=== PATIENT | male | born 1985 | race Hispanic/Latino ===

== ENCOUNTER → 2018-02-11 | Day surgery (SDC) | payer OTHER ==
[2018-02-06 09:56] LABS: BASOPHILS # (AUTO) 0.1 (0.0-0.1); BASOPHILS % 0.8 % (0.0-1.0); EOSINOPHILS # (AUTO) 0.1 (0.0-0.4); EOSINOPHILS % 1.7 % (0.0-6.0); HEMATOCRIT 47.8 % (38.2-49.6); HEMOGLOBIN 16.6 g/dL (14.0-18.0); LYMPHOCYTES # (AUTO) 3.2 (1.0-3.2); LYMPHOCYTES % 48.6 % (18.0-39.1); MEAN CORPUSCULAR HEMOGLOBIN 30.8 pg (28-32); MEAN CORPUSCULAR HGB CONC 34.7 g/dL (31-35); MEAN CORPUSCULAR VOLUME 88.7 fL (81-99); MONOCYTES # (AUTO) 0.9 (0.2-0.8); MONOCYTES % 13.3 % (4.4-11.3); NEUTROPHILS # (AUTO) 2.3 (2.1-6.9); NEUTROPHILS % 35.3 % (38.7-80.0); PLATELET COUNT 234 x10e3/uL (140-360); RED BLOOD COUNT 5.39 x10e6/uL (4.3-5.7); RED CELL DISTRIBUTION WIDTH 12.6 % (11.7-14.4)
[~2018-02-11] MED LIST: BUPIVACAINE 0.25% 30ML SDV INJ ONE; BUPIVACAINE HCL 0.5% INJ 30 ML VIAL INJ ONE; CEFTRIAXONE SOD 1 GM VIAL ONE; DEXAMETHASONE SOD PHOS INJ 4 MG/ML VIAL ONE; FENTANYL CITRATE/PF 100MCG/2 ML INJ ONE; KETOROLAC TROMETHAMINE 30 MG/ML VIAL ONE; LIDOCAINE HCL 2% LOCAL INJ 5 ML SDV VIAL INJ ONE; MIDAZOLAM HCL 2 MG/2 ML VIAL ONE; NEOSTIGMINE 1 MG/ML 10ML VIAL ONE; ONDANSETRON HCL INJ 2 MG/ML VIAL ONE; PROPOFOL IV EMULSION 10 MG/ML 20 ML VIAL ONE; SEVOFLURANE INHAL SOLN 250 ML PEN BTL ONE
--- NOTE | 2018-02-11 13:49 | Operative Report ---
DATE OF PROCEDURE: February 11, 2018 PREOPERATIVE DIAGNOSES 1. Fecundity. 2. Phimosis. POSTOPERATIVE DIAGNOSES 1. Fecundity. 2. Phimosis. OPERATIVE PROCEDURE PERFORMED 1. Bilateral segmental vasectomy. 2. Circumcision. ANESTHESIA: General anesthesia. ESTIMATED BLOOD LOSS: Minimal. INDICATIONS: Mr. Mike Guadalupe is a 32-year-old gentleman with a history of phimosis and a desire for permanent sterilization. He now presents for management of both procedures at the same time. PROCEDURE IN DETAIL: The patient was brought into the operating room and placed in the supine position. After administration of general anesthesia, he was prepped and draped in the usual sterile fashion. The right vasal segment was grasped through the skin, and a 1-cm incision was made over the right hemiscrotum. Dissection was carried out in and around the cord structures until the vas was identified. It was clipped and cut. The cut edges were fulgurated, and it was allowed to retract back into the scrotum. The skin was then closed using a figure-of-8 chromic suture. A similar procedure was performed on the contralateral side. Again, a 1-cm incision was made. Again, the cord was clipped and cut proximally and distally and a section removed between the 2 clips. Again, both edges were fulgurated using an electrocautery device. Again, the wound was closed using a figure-of-8 chromic suture. With the preputial skin in its normal anatomical position, a circumferential incision was made at the level of the chao. The foreskin was then retracted with mild difficulty, and a 2nd parallel circumferential incision was made approximately 5 mm proximal to the chao. The intervening tissue between these 2 incisions was removed and hemostasis obtained using electrocautery device. Once adequate hemostasis was secured, the skin edges were reapproximated and closed using interrupted chromic sutures. The wound was then cleaned and dried and covered with Mastisol and circumferential Tegaderm dressing. A penile block and bilateral cord blocks were performed using 0.25% plain Marcaine. Anesthesia was then reversed, and the patient was transferred to a bed and taken to the postanesthesia care unit in good condition. Of note, the needle and instrument counts were correct at the conclusion of the case. Job#: [id number] [employer]
== END | disposition home or self-care (01) ==
LOC: OR 08:58
PROVIDERS: ATTEND Urology
DX: N47.1 Phimosis (principal); Z30.2 Encounter for sterilization; N47.6 Balanoposthitis; Z68.32 Body mass index [BMI] 32.0-32.9, adult; Z87.891 Personal history of nicotine dependence
CPT/HCPCS: 36415; 54161; 55250; 85025; 88304; J0696; J1100; J1885; J2001; J2250; J2405; 88302; J2710